=== PATIENT | female | born 1965 | race Caucasian/White ===

== ENCOUNTER 2019-04-23 23:12 | Inpatient (IN) | payer OTHER ==
[~2019-04-23] VITALS: Ht 165.1 cm; Wt 105.7 kg
[2019-04-23] MEDS ORDERED: TRAZ-189 PO (23:39)
[2019-04-23] MEDS ORDERED: PROZ10CA7 PO (23:39)
[2019-04-23] MEDS ORDERED: BUPR10TASR PO (23:39)
[2019-04-23] MEDS ORDERED: ASPI81CH33 PO (23:39)
[2019-04-23] MEDS ORDERED: NORV5TAB PO (23:39)
[2019-04-24 00:40] LABS: HEMATOCRIT 43.7 % (36.0-47.0); HEMOGLOBIN 14.5 g/dl (12.0-15.5); MEAN CORPUSCULAR HEMOGLOBIN 27.6 pg (27.0-33.0); MEAN CORPUSCULAR HGB CONC 33.2 g/dl (32.0-36.5); MEAN CORPUSCULAR VOLUME 83.1 fl (80.0-96.0); PLATELET COUNT, AUTOMATED 363 10^3/uL (150-450); RED BLOOD COUNT 5.26 10^6/uL (4.00-5.40); WHITE BLOOD COUNT 11.4 10^3/uL (4.0-10.0)
[2019-04-24 00:47] LABS: AMPHETAMINES LEVEL URINE NEGATIVE (NEGATIVE); BARBITURATES URINE NEGATIVE (NEGATIVE); BENZODIAZEPINES URINE NEGATIVE (NEGATIVE); CANNABINOIDS URINE NEGATIVE (NEGATIVE); COCAINE METABOLITE URINE NEGATIVE (NEGATIVE); METHADONE URINE NEGATIVE (NEGATIVE); OPIATES URINE NEGATIVE (NEGATIVE); PHENCYCLIDINE URINE NEGATIVE (NEGATIVE)
[2019-04-24] MEDS ORDERED: FAMO1TAB11 PO (00:59)
[2019-04-24] MEDS ORDERED: ACET-897 PO (00:59)
[2019-04-24] MEDS ORDERED: ALBU17IN2 INH (00:59)
[2019-04-24 01:02] LABS: ACETAMINOPHEN LEVEL < 2.0 UG/ML (10.0-30.0); ALBUMIN 3.4 GM/DL (3.2-5.2); ALT/SGPT 25 U/L (12-78); BILIRUBIN,DIRECT 0.2 MG/DL (0.0-0.2); BILIRUBIN,TOTAL 1.1 MG/DL (0.2-1.0); BLOOD UREA NITROGEN 12 MG/DL (7-18); CALCIUM LEVEL 9.7 MG/DL (8.5-10.1); CARBON DIOXIDE LEVEL 25 MEQ/L (21-32); CHLORIDE LEVEL 108 MEQ/L (98-107); CREATININE FOR GFR 0.78 MG/DL (0.55-1.30); ETHYL ALCOHOL (ETHANOL) < 0.003 % (0.000-0.010); GLOMERULAR FILTRATION RATE > 60.0 (>51); GLUCOSE, FASTING 99 MG/DL (70-100); POTASSIUM SERUM 3.7 MEQ/L (3.5-5.1); SALICYLATE LEVEL < 1.7 MG/DL (5.0-30.0); SODIUM LEVEL 142 MEQ/L (136-145); TOTAL PROTEIN 7.2 GM/DL (6.4-8.2)
[2019-04-24] MEDS ORDERED: ACETAMINOPHEN 500 MG TAB PO ONE (02:15)
[2019-04-24] MEDS ORDERED: MAALOX 30 ML SUSP *UDC PO PRN (15:00)
[2019-04-24] MEDS ORDERED: HALOPERIDOL 5 MG TAB PO PRN (15:00)
[2019-04-24] MEDS ORDERED: IBUPROFEN 400 MG TAB PO PRN (15:00)
[2019-04-24] MEDS ORDERED: FAMOTIDINE 20 MG TAB PO PRN (15:00)
[2019-04-24] MEDS: traZODone 50 MG TAB PO PRN (21:00)
[2019-04-24] MEDS: ALBUTEROL 90 MCG/ACT 8GM HFA INHALER INH PRN (21:01)
[2019-04-24] MEDS: ACETAMINOPHEN TAB 650MG DOSE (2X325MG) PO PRN (21:01)
[2019-04-25 06:45] VITALS: BP 146/67
[2019-04-25] MEDS: ALBUTEROL 90 MCG/ACT 8GM HFA INHALER INH PRN ×4 (06:48→21:40)
[2019-04-25] MEDS: ACETAMINOPHEN TAB 650MG DOSE (2X325MG) PO PRN ×2 (06:48→21:41)
[2019-04-25] MEDS: amLODIPine 5 MG TAB PO SCH (11:12)
[2019-04-25] MEDS ORDERED: hydrOXYzine 50 MG TAB PO PRN (11:15)
[2019-04-25] MEDS ORDERED: FLUoxetine 10 MG CAP PO ONE (11:15)
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
[2019-04-25] MEDS: ASPIRIN 81 MG ENTERIC TAB PO SCH (11:41)
[2019-04-25 18:00] VITALS: BP 137/65
[2019-04-25] MEDS: traZODone 50 MG TAB PO PRN (21:42)
[2019-04-26 06:37] VITALS: BP 126/89
[2019-04-26 08:49] VITALS: BP 137/87
[2019-04-26] MEDS: ASPIRIN 81 MG ENTERIC TAB PO SCH (08:49)
[2019-04-26] MEDS: amLODIPine 5 MG TAB PO SCH (08:49)
[2019-04-26] MEDS ORDERED: TRAZ-252 PO ×2 (08:54→10:41)
[2019-04-26] MEDS ORDERED: HYDR50TA70 PO ×2 (08:54→10:41)
[2019-04-26] MEDS ORDERED: FLUO10CA8 PO (08:54)
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
[2019-04-26] MEDS ORDERED: FLUoxetine 10 MG CAP PO SCH (09:00)
[2019-04-26] MEDS ORDERED: PROZ10CA7 PO (10:40)
== END 2019-04-26 11:20 | disposition home or self-care (01) | DRG 755 ==
LOC: M ED 23:12 → M ED INP 04-24 14:57 → M PSY 04-24 16:40
PROVIDERS: ADMIT Psychiatry & Neurology Addiction Medicine; ATTEND Psychiatry & Neurology Psychiatry
DX: F43.23 Adjustment disorder with mixed anxiety and depressed mood (principal); F60.3 Borderline personality disorder; R45.851 Suicidal ideations; Z79.899 Other long term (current) drug therapy; I10 Essential (primary) hypertension; E66.9 Obesity, unspecified; J45.909 Unspecified asthma, uncomplicated; Z91.040 Latex allergy status; I48.0 Paroxysmal atrial fibrillation; Z79.82 Long term (current) use of aspirin